=== PATIENT | female | born 1970 | race Caucasian/White ===

== ENCOUNTER 2024-05-19 11:17 | Observation (INO) | payer OTHER ==
[2024-05-19] MEDS ORDERED: CEFTRIAXONE 1000 MG/VIAL ONE (11:42)
[2024-05-19] MEDS ORDERED: METHYLPREDNISOLONE 125 MG INJ ONE ×2 (11:43→13:28)
[2024-05-19] MEDS ORDERED: IPRATROPIUM BROM 0.5MG/2.5ML ONE (11:43)
[2024-05-19] MEDS ORDERED: NA CHLORIDE 0.9% 1,000 ML ONE (11:43)
[2024-05-19] MEDS ORDERED: LEVALBUTEROL 1.25 MG/3 ML NEB ONE (11:43)
[2024-05-19] MEDS ORDERED: AZITHROMYCIN 250 MG TAB ONE (11:43)
--- NOTE | 2024-05-19 12:19 | RAD REPORT ---
EXAMINATION: ONE VIEW CHEST XR CLINICAL INDICATION: Female, 54 years old.Cough;Congestion TECHNIQUE: 1 View, AP supine, X-ray of the chest was performed. [id number]. COMPARISON: No prior exam. FINDINGS: Lungs and pleura: Clear lungs. No effusion. Heart and mediastinum: Normal heart size. Unremarkable mediastinal contours. Osseous structures: No acute abnormality. Tubes/lines: None Other: None. IMPRESSION: No acute intrathoracic abnormality.
[2024-05-19 12:40] LABS: Absolute Lymphocytes (CBC) 0.9 K/uL (0.7-4.9); Absolute Monocytes 0.1 K/uL (0.1-1.3); Basophils % 0.5 % (0-1.3); Eosinophils % 0.2 % (0-4.4); Hematocrit 41.7 % (36.0-45.0); Hemoglobin 13.8 g/dL (12.0-15.0); Lymphocytes % 14.4 % (15.3-44.8); MPV 7.2 fL (7.6-11.3); Monocytes % 1.9 % (3.3-12.3); Platelets 408 thou/uL (152-406); RBC Red Blood Cell Count 4.74 M/uL (3.86-4.86); Red Cell Distribution Width 13.8 % (12.1-15.2)
[2024-05-19 12:41] LABS: PT Prothrombin Time 11.4 SECONDS (9.4-12.5); Protime INR 1.02
[2024-05-19 12:54] LABS: SARS-CoV-2 Antigen CONTROL BLUE LINE VIS/BG OK; SARS-CoV-2 Antigen Rapid Res Negative (Negative)
[2024-05-19 12:56] LABS: ALT/SGPT 19 U/L (13-56); Albumin 4.2 g/dL (3.4-5.0); Albumin/Globulin Ratio 1.1 (1.1-1.8); Alkaline Phosphatase 90 U/L (45-117); Anion Gap 10.6 mEq/L (5.0-15.0); BUN Blood Urea Nitrogen 9 mg/dL (7-18); Bicarbonate 26 mEq/L (21-32); Bilirubin Total 0.4 mg/dL (0.2-1.0); Globulin 3.9 g/dL (2.3-3.5); Glomerular Filtration Rate 80 ml/min (=/>90); Glucose Level 92 mg/dL (74-106); Magnesium 2.1 mg/dL (1.6-2.4); NT PRO-BNP 58 pg/mL (<125); Potassium 3.6 mEq/L (3.5-5.1); Protein, Total 8.1 g/dL (6.4-8.2); Sodium Level 134 mEq/L (136-145)
[2024-05-19 12:59] LABS: AST/SGOT < 10 U/L (15-37); Bilirubin Direct < 0.2 mg/dL (0-0.2); Bilirubin Indirect, Calculated 0.2 mg/dL (0.2-0.8)
--- NOTE | 2024-05-19 13:26 | RAD REPORT ---
EXAMINATION: CT CHEST WITHOUT CONTRAST CLINICAL INDICATION: Female, 54 years old. DYSPNEA TECHNIQUE: Routine CT scan of the chest without intravenous contrast. One or more of the following do se reduction techniques were used: Automated exposure control, adjustment of the mA and/or kV according to patient size, and/or iterative reconstruction. Unless otherwise specified, incidental fi ndings do not require dedicated imaging follow-up. [id number]. COMPARISON: Same-day chest x-ray FINDINGS: LOWER NECK: Visualized thyroid gland and soft tissues are normal. LUNGS AND AIRWAYS: Airways are clear. No evidence of airspace or interstitial process. Azygous fissur e at the right lung apex, normal variant. Scattered bilateral pulmonary nodules. Most of which are calcified. A few noncalcified pulmonary nodules are noted including a 4 mm nodule in the right lower lobe on image 34, series 201. None are overtly suspicious. PLEURA: No pleural effusion. No pneumothorax. Hemidiaphragms are normally positioned. MEDIASTINUM AND LYMPH NODES: No mediastinal mass or fluid collection. Normal size mediastinal, hilar, and axillary lymph nodes. THORACIC AORTA: Normal caliber and configuration. PULMONARY ARTERIES: Normal caliber. HEART: Normal heart size. No coronary calcifications.No pericardial effusion. OSSEOUS STRUCTURES AND CHEST WALL: Intact. UPPER ABDOMEN: Cholecystectomy IMPRESSION: No acute or significant abnormalities. Small calcified and noncalcified pulmonary nodules are almost certainly benign. Unless high risk for lung cancer, no follow-up is required.
[2024-05-19] MEDS ORDERED: MAGNESIUM SULFATE 1 gm IVPB 1 GM/100 ML BAG IV ONE (13:28)
[2024-05-19] MEDS ORDERED: ENOXAPARIN 40 MG/0.4 ML SQ ONE (13:28)
[2024-05-19] MEDS ORDERED: FAMOTIDINE 20 MG/2 ML VIAL IV ONE (13:28)
--- NOTE | 2024-05-19 13:31 | ER ---
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 Coronavirus screen: shortness of breath. Ebola Screen: Patient denies travel to an Ebola-affected area in the 21 days before illness onset. Initial Sepsis Screen: Does the patient meet any 2 criteria? No. Patient's initial sepsis screen is negative. Does the patient have a suspected source of infection? No. Patient's initial sepsis screen is negative. Risk Assessment: Do you want to hurt yourself or someone else? Patient reports no desire to harm self or others. Onset of symptoms was May 2024. 11:29 Acuity: KAROL 3 aa5 11:29 Method Of Arrival: Ambulatory aa5 Triage Assessment: 11:30 General: Appears in no apparent distress. slender, Behavior is cooperative, appropriate bp for age, anxious. Pain: Denies pain. EENT: No deficits noted. Neuro: Level of Consciousness is obeys commands, Oriented to Appropriate for age. Cardiovascular: Rhythm is sinus rhythm. Respiratory: Reports shortness of breath Onset: The symptoms/episode began/occurred at an unknown time. the patient has mild shortness of breath. GI: No signs and/or symptoms were reported involving the gastrointestinal system. : No signs and/or symptoms were reported regarding the genitourinary system. Derm: No deficits noted. Musculoskeletal: No deficits noted. Historical: - Allergies: :31 No Known Allergies; aa5 - Home Meds: :31 Dupixent Pen subcutaneous [Active]; epinephrine pen [Active]; Albuterol Inhl [Active]; aa5 prednisone 40mg Oral tablet daily started 05/18/2024 [Active]; hydroxyzine HCl 25 mg Oral tablet [Active]; famotidine 20 mg Oral tablet [Active]; fluticasone furoate 27.5 mcg/actuation intranasal spray, suspension [Active]; fexofenadine 180 mg oral tablet [Active]; budesonide inhalation [Active]; gotdznnehh-smiryrdy-vadcarvhaw 160-9-4.8 mcg/actuation inhalation HFA Aerosol Inhaler [Active]; - PMHx: 11:31 Asthma; anaphylaxis (unknown substance); aa5 - Immunization history:: Adult Immunizations unknown. - Infectious Disease History:: Denies. - Social history:: Smoking status: Patient denies any tobacco usage or history of. Screenin:30 [facility] ED Fall Risk Assessment (Adult) History of falling in the last 3 months, bp including since admission No falls in past 3 months (0 pts) Confusion or Disorientation No (0 pts) Intoxicated or Sedated No (0 pts) Impaired Gait No (0 pts) Mobility Assist Device Used No (0 pt) Altered Elimination No (0 pt) Score/Fall Risk Level 0 - 2 = Low Risk. Abuse screen: Denies threats or abuse. Denies injuries from another. Nutritional screening: No deficits noted. Tuberculosis screening: No symptoms or risk factors identified. Assessment: 11:30 General: Appears in no apparent distress. slender, Behavior is cooperative, appropriate bp for age, anxious. Cardiovascular: Rhythm is sinus tachycardia. Respiratory: Airway is patent Respiratory effort is even, unlabored, Breath sounds are clear bilaterally. 14:00 Reassessment: Patient appears in no apparent distress at this time. Patient is alert, bp oriented x 3, equal unlabored respirations, skin warm/dry/pink. 15:00 Reassessment: Patient appears in no apparent distress at this time. Patient and/or jb4 family updated on plan of care and expected duration. Pain level reassessed. Patient is alert, oriented x 3, equal unlabored respirations, skin warm/dry/pink. 16:00 Reassessment: Patient appears in no apparent distress at this time. Patient and/or jb4 family updated on plan of care and expected duration. Pain level reassessed. Patient is alert, oriented x 3, equal unlabored respirations, skin warm/dry/pink. 17:00 Reassessment: Patient appears in no apparent distress at this time. Patient and/or jb4 family updated on plan of care and expected duration. Pain level reassessed. Patient is alert, oriented x 3, equal unlabored respirations, skin warm/dry/pink. 18:53 Reassessment: Patient appears in no apparent distress at this time. Patient and/or jb4 family updated on plan of care and expected duration. Pain level reassessed. Patient is alert, oriented x 3, equal unlabored respirations, skin warm/dry/pink. Vital Signs: 11:29 BP 133 / 77; Pulse 95; Resp 20 S; Temp 97.8(TE); Pulse Ox 100% on R/A; Weight 55.79 kg aa5 (M); Height 5 ft. 9 in. (R); 14:00 BP 144 / 86; Pulse 87; Resp 16; Pulse Ox 100% ; bp 16:00 BP 106 / 69; Pulse 97; Resp 16; Pulse Ox 100% on R/A; jb4 19:00 BP 104 / 71; Pulse 93; Resp 16; Pulse Ox 98% on R/A; jb4 11:29 Body Mass Index 18.16 (55.79 kg, 175.26 cm) aa5 ED Course: 11:23 Patient arrived in ED. im 11:24 Angel Bah MD is Attending Physician. robe 11:29 Arm band placed on. aa5 11:30 Patient has correct armband on for positive identification. bp 11:31 Triage completed. aa5 11:38 Kurt Christine, RN is Primary Nurse. bp 12:16 XRAY Chest (1 view) In Process Unspecified. EDMS 12:30 Initial lab(s) drawn, by sd, sent to lab. Inserted saline lock: 20 gauge in right bp antecubital area, using aseptic technique. Blood collected. Flushed with 10 mL NS. 13:17 Thorax Wo Con In Process Unspecified. EDMS 13:29 Rolly Milner MD is Hospitalizing Provider. robe 13:39 US Extremity Venous W Compression Dom In Process Unspecified. EDMS 13:50 First set of blood cultures drawn by me, Second set of blood cultures drawn by me, EKG bp done, by ED staff, reviewed by Angel Bah MD. 19:25 No provider procedures requiring assistance completed. Patient admitted, IV remains in dd2 place. Administered Medications: 12:18 CANCELLED (Patient Refused): [id number] mg IVP once bp 12:20 Drug: NS 0.9% IV 500 ml IV at bolus once Route: IV; Rate: bolus; Site: right bp antecubital; 12:20 Drug: NS 0.9% IV 1000 ml IV at 125 ml/hr continuous Route: IV; Rate: 125 ml/hr; Site: bp right antecubital; 12:20 Drug: Levalbuterol Inhalation 3.75 mg Inhalation once Route: Inhalation; bp 12:20 Drug: Ipratropium Inhalation Aerosol 0.5 mg Inhalation once Route: Inhalation; bp 12:20 Drug: Rocephin IV 1 grams IV at per protocol once; Given slow IV push per pharmacy bp instructions Route: IV; Rate: per protocol; Site: right antecubital; 12:20 Drug: AZITHromycin PO 500 mg PO once Route: PO; bp 13:15 Drug: Magnesium Sulfate IVPB 1 grams IVPB once over 1 hrs Route: IVPB; Infused Over: 1 bp hrs; Site: right antecubital; 13:30 Drug: MethylPrednisoLONE IVP 125 mg IVP once Route: IVP; Site: right antecubital; bp 13:30 Drug: Famotidine IVP 20 mg IVP once; dilute with 10 mL 0.9% NaCl; give over 2 minutes bp Route: IVP; Site: right antecubital; 13:30 Drug: Enoxaparin Sub-Q 1 mg/kg Sub-Q once Route: Sub-Q; Site: right lower abdomen; bp 14:00 Drug: NS 0.9% IV 1000 ml IV at 1000 ml once; to be given as a bolus over 60 minutes bp Route: IV; Rate: 1000 ml; Site: right antecubital; 15:00 Follow up: Response: No adverse reaction; IV Status: Completed infusion; IV Intake: jb4 1000ml Medication: 19:51 VIS not applicable for this client. dd2 Intake: 15:00 IV: 1000ml; Total: 1000ml. jb4 Outcome: 13:31 Decision to Hospitalize by Provider. robe 19:25 Admitted to Med/surg dd2 19:25 Condition: stable 19:25 Instructed on the need for admit, 19:51 Patient left the ED. dd2 Signatures: Dispatcher [employer] Angel Foster MD MD cha Calderon, Audri RN RN aa5 Ryan Omalley RN RN jb4 Kurt Christine RN RN bp Angelika Coley DIANA, RN RN dd2 Corrections: (The following items were deleted from the chart) 12:22 11:29 BP 133 / 77; Pulse 95bpm; Resp 20bpm; Spontaneous; Pulse Ox 100% RA; Temp 97.8F aa5 Temporal; aa5
--- NOTE | 2024-05-19 13:31 | EDPHYS ---
Physician Documentation [facility] Name: Tejinder Castillo Age: 54 yrs Sex: Female : 1970 Arrival Date: 05/19/2024 Time: 11:17 Bed 19 Private MD: ED Physician Angel Bah HPI: 05/19 12:49 This 54 yrs old Female presents to ER via Ambulatory with complaints of robe Asthma Exacerbation, Flu Symptoms, Shortness Of Breath. 12:49 The patient presents to the emergency department with wheezing, Current therapy: robe albuterol nebs, that began without any particular precipitating event. Onset: The symptoms/episode began/occurred 10 day(s) ago. Modifying factors: The symptoms are alleviated by nothing, the symptoms are aggravated by dust, exertion. Associated signs and symptoms: Pertinent positives: nausea. Severity of symptoms: At their worst the symptoms were moderate severe in the emergency department the symptoms have improved moderately. The patient has experienced similar episodes in the past, multiple times. Historical: - Allergies: 11:31 No Known Allergies; aa5 - Home Meds: 11:31 Dupixent Pen subcutaneous [Active]; epinephrine pen [Active]; Albuterol Inhl [Active]; aa5 prednisone 40mg Oral tablet daily started 05/18/2024 [Active]; hydroxyzine HCl 25 mg Oral tablet [Active]; famotidine 20 mg Oral tablet [Active]; fluticasone furoate 27.5 mcg/actuation intranasal spray, suspension [Active]; fexofenadine 180 mg oral tablet [Active]; budesonide inhalation [Active]; taomsmvkwg-qavqmoze-slvuzrofmk 160-9-4.8 mcg/actuation inhalation HFA Aerosol Inhaler [Active]; - PMHx: 11:31 Asthma; anaphylaxis (unknown substance); aa5 - Immunization history:: Adult Immunizations unknown. - Infectious Disease History:: Denies. - Social history:: Smoking status: Patient denies any tobacco usage or history of. ROS: 12:49 Constitutional: Negative for fever, chills, and weight loss, Eyes: Negative for injury, robe pain, redness, and discharge, ENT: Negative for injury, pain, and discharge, Neck: Negative for injury, pain, and swelling, Cardiovascular: Negative for chest pain, palpitations, and edema, Abdomen/GI: Negative for abdominal pain, nausea, vomiting, diarrhea, and constipation, Back: Negative for injury and pain, : Negative for injury, bleeding, discharge, and swelling, MS/Extremity: Negative for injury and deformity, Skin: Negative for injury, rash, and discoloration, Neuro: Negative for headache, weakness, numbness, tingling, and seizure, Psych: Negative for depression, anxiety, suicide ideation, homicidal ideation, and hallucinations, Allergy/Immunology: Negative for hives, rash, and allergies, Endocrine: Negative for neck swelling, polydipsia, polyuria, polyphagia, and marked weight changes, Hematologic/Lymphatic: Negative for swollen nodes, abnormal bleeding, and unusual bruising, 12:49 Respiratory: Positive for cough, shortness of breath, wheezing, inspiratory, expiratory, Exam: 12:49 Constitutional: This is a well developed, well nourished patient who is awake, alert, robe and in no acute distress. Head/Face: Normocephalic, atraumatic. Eyes: Pupils equal round and reactive to light, extra-ocular motions intact. Lids and lashes normal. Conjunctiva and sclera are non-icteric and not injected. Cornea within normal limits. Periorbital areas with no swelling, redness, or edema. ENT: Nares patent. No nasal discharge, no septal abnormalities noted. Tympanic membranes are normal and external auditory canals are clear. Oropharynx with no redness, swelling, or masses, exudates, or evidence of obstruction, uvula midline. Mucous membranes moist. Neck: Trachea midline, no thyromegaly or masses palpated, and no cervical lymphadenopathy. Supple, full range of motion without nuchal rigidity, or vertebral point tenderness. No Meningismus. Chest/axilla: Normal chest wall appearance and motion. Nontender with no deformity. No lesions are appreciated. Cardiovascular: Regular rate and rhythm with a normal S1 and S2. No gallops, murmurs, or rubs. Normal PMI, no JVD. No pulse deficits. Abdomen/GI: Soft, non-tender, with normal bowel sounds. No distension or tympany. No guarding or rebound. No evidence of tenderness throughout. Back: No spinal tenderness. No costovertebral tenderness. Full range of motion. Skin: Warm, dry with normal turgor. Normal color with no rashes, no lesions, and no evidence of cellulitis. MS/ Extremity: Pulses equal, no cyanosis. Neurovascular intact. Full, normal range of motion. Neuro: Awake and alert, GCS 15, oriented to person, place, time, and situation. Cranial nerves II-XII grossly intact. Motor strength 5/5 in all extremities. Sensory grossly intact. Cerebellar exam normal. Normal gait. Psych: Awake, alert, with orientation to person, place and time. Behavior, mood, and affect are within normal limits. 12:49 Respiratory: the patient does not display signs of respiratory distress, Respirations: labored breathing, that is mild, Breath sounds: bronchial sounds, that are moderate, are scattered, decreased breath sounds, that are mild, are scattered, rhonchi, that are mild, are scattered, stridor, is not appreciated, + upper airway congestion. Respiratory rate: 22 12:49 Musculoskeletal/extremity: DVT Exam: No signs of deep vein thrombosis. no pain, no swelling, no tenderness, negative Homans' sign noted on exam, no appreciated bluish discoloration, no erythema, no increased warmth, 12:53 ECG was reviewed by the Attending Physician. [facility] Vital Signs: 11:29 BP 133 / 77; Pulse 95; Resp 20 S; Temp 97.8(TE); Pulse Ox 100% on R/A; Weight 55.79 kg aa5 (M); Height 5 ft. 9 in. (R); 14:00 BP 144 / 86; Pulse 87; Resp 16; Pulse Ox 100% ; bp 16:00 BP 106 / 69; Pulse 97; Resp 16; Pulse Ox 100% on R/A; jb4 19:00 BP 104 / 71; Pulse 93; Resp 16; Pulse Ox 98% on R/A; jb4 11:29 Body Mass Index 18.16 (55.79 kg, 175.26 cm) aa5 MDM: 11:24 Patient medically screened. [facility] 12:51 Differential diagnosis: Anxiety Reaction asthma, Bronchitis CHF exacerbation, Chronic robe Obstructive Pulmonary Disease acute asthma, exercise-induced asthma, reactive airway, CHF, anaphylaxis, foreign body, Myocardial Infarction pneumonia, Pneumothorax Psychogenic. Antibiotic administration: Rocephin and Zithromax given. Immunization status: Influenza vaccine: within last 5 years. Data reviewed: vital signs, nurses notes, lab test result(s), EKG, radiologic studies. Consideration of Admission/Observation Patient was admitted/placed on observation. Escalation of care including admission/observation considered. I considered the following discharge prescriptions or medication management in the emergency department Medications were administered in the Emergency Department. See MAR. Independent interpretation of the following test(s) in the Emergency Department EKG: See my EKG interpretation above. Test considered but Not performed: Ultrasound NO 2 . Historians other than the Patient: Family Member: MOM WELL INFORMED. Care significantly affected by the following chronic conditions: ASTHMA, ANAPHY. Counseling: I had a detailed discussion with the patient and/or guardian regarding the historical points, exam findings, and any diagnostic results supporting the discharge/admit diagnosis, lab results, radiology results, the need for further work-up and treatment in the hospital. 05/19 11:27 Order name: Basic Metabolic Panel; Complete Time: 13:19 [facility] 05/19 11:27 Order name: CBC with Diff; Complete Time: 12:47 [facility] 05/19 11:27 Order name: LFT's; Complete Time: 13:19 [facility] 05/19 11:27 Order name: Magnesium; Complete Time: 13:19 [facility] 05/19 11:27 Order name: NT PRO-BNP; Complete Time: 13:19 [facility] 05/19 11:27 Order name: PT-INR; Complete Time: 12:47 [facility] 05/19 11:27 Order name: Troponin HS; Complete Time: 13:19 [facility] 05/19 11:27 Order name: Blood Culture Adult (2) [facility] 05/19 11:27 Order name: Lactate w/ 2H reflex if indic.; Complete Time: 13:19 [facility] 05/19 11:27 Order name: SARS RAPID; Complete Time: 13:19 [facility] 05/19 11:27 Order name: Flu; Complete Time: 13:19 [facility] 05/19 15:04 Order name: Ghost Lactate-NO COLLECT Timer; Complete Time: 17:20 EDMS 05/19 15:18 Order name: Basic Metabolic Panel EDMS 05/19 15:18 Order name: Basic Metabolic Panel EDMS 05/19 15:18 Order name: CBC with Automated Diff EDMS 05/19 15:18 Order name: CBC with Automated Diff EDMS 05/19 15:18 Order name: Magnesium EDMS 05/19 15:18 Order name: Magnesium EDMS 05/19 18:23 Order name: Lactate Sepsis 2 HR Follow-up EDMS 05/19 11:27 Order name: XRAY Chest (1 view); Complete Time: 12:47 [facility] 05/19 13:14 Order name: Thorax Wo Con; Complete Time: 17:20 [facility] 05/19 13:19 Order name: VQ scan (Nuclear Medicine) [facility] 05/19 13:20 Order name: US Extremity Venous W Compression Dom; Complete Time: 17:20 [facility] 05/19 17:09 Order name: NM; Complete Time: 17:20 [facility] 05/19 11:27 Order name: EKG; Complete Time: 11:28 [facility] 05/19 15:18 Order name: CONS Physician Consult [facility] 05/19 11:27 Order name: Cardiac monitoring; Complete Time: 12:23 [facility] 05/19 11:27 Order name: EKG - Nurse/Tech; Complete Time: 14:13 [facility] 05/19 11:27 Order name: IV Saline Lock; Complete Time: 12:23 [facility] 05/19 11:27 Order name: Labs collected and sent; Complete Time: 12:23 [facility] 05/19 11:27 Order name: O2 Per Protocol; Complete Time: 12:23 [facility] 05/19 11:27 Order name: O2 Sat Monitoring; Complete Time: 12:24 [facility] EC:53 Rate is 73 beats/min. Rhythm is regular. QRS [place] is Normal. HI interval is normal. QRS robe interval is normal. QT interval is normal. No Q waves. T waves are Normal. No ST changes noted. Clinical impression: NSR w/ Non-specific ST/T Changes and No evidence of ischemia. Interpreted by me. Reviewed by me. Administered Medications: 12:18 CANCELLED (Patient Refused): [id number] mg IVP once bp 12:20 Drug: NS 0.9% IV 500 ml IV at bolus once Route: IV; Rate: bolus; Site: right bp antecubital; 12:20 Drug: NS 0.9% IV 1000 ml IV at 125 ml/hr continuous Route: IV; Rate: 125 ml/hr; Site: bp right antecubital; 12:20 Drug: Levalbuterol Inhalation 3.75 mg Inhalation once Route: Inhalation; bp 12:20 Drug: Ipratropium Inhalation Aerosol 0.5 mg Inhalation once Route: Inhalation; bp 12:20 Drug: Rocephin IV 1 grams IV at per protocol once; Given slow IV push per pharmacy bp instructions Route: IV; Rate: per protocol; Site: right antecubital; 12:20 Drug: AZITHromycin PO 500 mg PO once Route: PO; bp 13:15 Drug: Magnesium Sulfate IVPB 1 grams IVPB once over 1 hrs Route: IVPB; Infused Over: 1 bp hrs; Site: right antecubital; 13:30 Drug: MethylPrednisoLONE IVP 125 mg IVP once Route: IVP; Site: right antecubital; bp 13:30 Drug: Famotidine IVP 20 mg IVP once; dilute with 10 mL 0.9% NaCl; give over 2 minutes bp Route: IVP; Site: right antecubital; 13:30 Drug: Enoxaparin Sub-Q 1 mg/kg Sub-Q once Route: Sub-Q; Site: right lower abdomen; bp 14:00 Drug: NS 0.9% IV 1000 ml IV at 1000 ml once; to be given as a bolus over 60 minutes bp Route: IV; Rate: 1000 ml; Site: right antecubital; 15:00 Follow up: Response: No adverse reaction; IV Status: Completed infusion; IV Intake: jb4 1000ml Disposition Summary: 05/19/24 13:31 Hospitalization Ordered Notes: Hospitalization Status: Inpatient Admission robe Provider: Rolly Milner cha Location: Telemetry/MedSurg (observation) robe Condition: Fair robe Problem: new robe Symptoms: have improved robe Bed/Room Type: Standard robe Room Assignment: 409(05/19/24 18:29) bc6 Diagnosis - Moderate persistent asthma with (acute) exacerbation - FAILED OUTPATIENT TREATMENT robe - Hypoxemia robe Forms: - Medication Reconciliation Form robe - SBAR form robe - Leadership Thank You Letter robe Signatures: Dispatcher [employer] EDAngel Reed MD MD cha Calderon, Audri RN RN aa5 Kurt Christine RN RN Ngozi Gasca bc6 Ryan Omalley RN jb4 Corrections: (The following items were deleted from the chart) 11:28 11:28 BASIC METABOLIC PANEL+C.LAB.BRZ ordered. EDMS EDMS 11:28 11:28 CBC+H.LAB.BRZ ordered. EDMS EDMS 11:28 11:28 HEPATIC FUNCTION+C.LAB.BRZ ordered. EDMS EDMS 11:28 11:28 MAGNESIUM+C.LAB.BRZ ordered. EDMS EDMS 11: 11:28 PROBNP+C.LAB.BRZ ordered. EDMS EDMS 11: 11:28 PROTIME (+INR)+COAG.LAB.BRZ ordered. EDMS EDMS 11: 11:28 Troponin High Sensitivity+C.LAB.BRZ ordered. EDMS EDMS 11: 11:28 BLOOD CULTURE*+BA.LAB.BRZ ordered. EDMS EDMS : 11:28 LACTATE+C.LAB.BRZ ordered. EDMS EDMS 11: 11:28 SARS-COV-2 Antigen Rapid+I.LAB.BRZ ordered. EDMS EDMS 11: 11:28 Influenza Screen (A \T\ B)+BA.LAB.BRZ ordered. EDMS EDMS 12:18 11:27 MethylPrednisoLONE IVP 125 mg IVP once ordered. [facility] bp 13:14 12:48 Chest For PE Angio+CT.RAD.BRZ ordered. EDMS EDMS 18:29 13:31 robe bc6
--- NOTE | 2024-05-19 14:15 | RAD REPORT ---
EXAMINATION: US LOWER EXTREMITY VENOUS DOPPLER BILATERAL CLINICAL INDICATION: Female, 54 years old.PAIN TECHNIQUE: Complete bilateral duplex sonography of the lower extremity veins was performed. The exami nation included compression for vein patency, color Doppler imaging and flow augmentation in response to distal compression of the distal external iliac, common femoral, femoral, popliteal, manny miles, tibial and great saphenous veins. [id number]. COMPARISON: No prior exams FINDINGS: Duplex sonography imaging demonstrates all deep examined to be fully compressible with spontaneous, p hasic and augmented flow bilaterally. IMPRESSION: No evidence of acute deep venous thrombosis seen in either lower extremity.
[2024-05-19] MEDS ORDERED: ONDANSETRON 4 MG/2 ML VIAL IV PRN (15:13)
--- NOTE | 2024-05-19 15:28 | P.HP ---
Certification for Inpatient Patient admitted to: Observation With expected LOS: <2 Midnights Practitioner: I am a practitioner with admitting privileges, knowledge of patient current condition, hospital course, and medical plan of care. Services: Services provided to patient in accordance with Admission requirements found in Title 42 Section 412.3 of the Code of Federal Regulations Patient History Date of Service: 05/19/24 Reason for admission: asthma / shortness of breath History of Present Illness: 54yo F, PMH: Factor V Leiden with LLE DVT (~5 yrs ago and not consistently taking anticoagulation), recently diagnosed with severe asthma and? Idiopathic anaphylaxis, chronic pain, GERD/Gastroparesis. Presents to the ED with 3 days of progressively worsening shortness of breath. Diagnosed with asthma and anaphylaxis 3-4 months ago, reports no prior history, and has had 35 episodes. She has been on Symbicort and as needed albuterol. She saw her allergy/manager department yesterday who gave her samples to start Breztri, and prescribed DuoNebs. Due to the timing, she was unable to fill the DuoNeb prescription yesterday, and her breathing progressively worsened to where she could not wait for the pharmacy today. She is unable to recall any particular triggers for her asthma as well as her anaphylaxis. She has been getting worked up by her handy worker, reports blood testing for allergies and immunoglobulins have been negative. She feels like her breathing has continued to get worse over the last 3-4 months despite inhalers and nebulizers. Associated with cough, headache, decreased appetite. She describes her anaphylaxis as getting nauseous, coughing, throwing up, near syncope, and seeing black spots. Each episode has had some relief after using an EpiPen. Feels like smells/odors could potentially trigger this. She also recently received the first 2 injections of Dexilant last . Over the last 24 hours 48 hours she was using her albuterol nearly every hour with only temporary relief. She was told if needing that often to present to the ER. In the ED she was noted to appear in respiratory distress, oxygen saturation 92- 92% on room air, with increased work of breathing. She reports feeling much better after receiving DuoNebs in the ER. Chest x-ray, CT chest, bilateral venous Doppler ultrasound, and lab work were all rather unremarkable with exception of an elevated lactate. Allergies No Known Allergies Allergy (Unverified 05/19/24 15:25) - Past Medical/Surgical History -: Factor V Leiden, left leg DVT (~5 years ago) -: Asthma -: Anaphylaxis (? Idiopathic ) -: Anxiety and depression -: Chronic lower back pain -: Cholecystectomy - Family History Family History: Reviewed- Non-Contributory - Social History Smoking Status: Never smoker Alcohol use: Yes CD- Drugs: No Place of Residence: Home Review of Systems 10-point ROS is otherwise unremarkable General: Malaise Respiratory: Cough, SOB with Excertion Musculoskeletal: Back Pain Physical Examination - Physical Exam General: Alert, Oriented x3 HEENT: EOMI, Sclerae nonicteric Respiratory: Clear to auscultation bilaterally, Diminished, Other (Slight tachypnea, shallow respirations) Cardiovascular: No edema, Regular rate/rhythm Gastrointestinal: Soft and benign, Non-distended, No tenderness Musculoskeletal: No contractures, No tenderness Neurological: Normal speech, Normal affect - Studies Laboratory Data (last 24 hrs) 05/19/24 05/19/24 05/19/24 12:20 12:20 12:20 WBC 6.00 Hgb 13.8 Hct 41.7 Plt Count 408 H PT 11.4 INR 1.02 Sodium 134 L Potassium 3.6 BUN 9 Creatinine 0.86 Glucose 92 Magnesium 2.1 Total Bilirubin 0.4 AST < 10 L ALT 19 Alkaline Phosphatase 90 Microbiology Data (last 24 hrs): 05/19/24 12:20 Nasopharnyx Influenza Type A Antigen Screen - Final 05/19/24 12:20 Nasopharnyx Influenza Type B Antigen Screen - Final Assessment and Plan - Advance Directives Does patient have a Living Will: No Does patient have a Durable POA for Healthcare: No Physician Review Additional Text: Problem list Shortness of breath, suspected acute asthma exacerbation History of anaphylaxis (? Idiopathic factor V Leiden) History of left lower extremity DVT (approximately 5 years ago) Anxiety Chronic pain syndrome Patient reports 3 days of progressive worsening breathing, similar to her previous/recent episodes when diagnosed with asthma exacerbation CXR, CT without any acute findings, patient had some improvement after DuoNebs Continue home inhalers, nebs, will need to confirm her home medications Pulmonology consult Currently on room air No evidence of infection/effusion History of anaphylaxis, with no particular trigger that she has been able to identify, the anaphylaxis and asthma began in the last 4-5 months States similar symptoms seem to be triggered by odors Continue home Pepcid, hydroxyzine, fexofenadine With her describing anaphylaxis, asthma exacerbations, hives, raises suspicion for mast cell activation syndrome Or persist suspicion with serum allergy testing and immunoglobulins which were all normal VQ scan ordered by ED, to be done later this afternoon Bilateral venous ultrasound negative for DVT Patient will be at risk of PE, however no tachycardia, and saturating 99% on room air, with noted improvement after DuoNebs making it less likely She has not been taking her anticoagulation as recommended/prescribed due to the the medications make her "not feel well" Lovenox for now Code: Full Dispo: Anticipate home next 24 hours Time Spent Managing Pts Care (In Minutes): 70
[2024-05-19] MEDS ORDERED: FEXOFENADINE 180 MG TAB PO PRN (15:34)
--- NOTE | 2024-05-19 17:08 | RAD REPORT ---
EXAMINATION: NUCLEAR MEDICINE VENTILATION PERFUSION SCAN XENON CLINICAL INDICATION: Female, 54 years old. DYSPNEA TECHNIQUE: Ventilation images after inhaled radiopharmaceutical obtained in multiple projections.. Pe rfusion images were obtained in multiple projections after intravenous injection of Tc-99m MAA. [id number]. RADIOPHARMACEUTICALS: 15.9 mCi of Xenon-133 and 6.7 mCi intravenous Tc-99m MAA. COMPARISON: Same-day chest radiograph and chest CT FINDINGS: VENTILATION: No focal ventilation defect. PERFUSION: Single moderate sized segmental perfusion defect in the left lung which extends to the per iphery. IMPRESSION: V/Q mismatch with intermediate probability for pulmonary embolism by PIOPED II criteria.
[2024-05-19 19:49] VITALS: BMI 18.1
[2024-05-19] MEDS: FAMOTIDINE 20 MG TAB PO SCH (19:57)
[2024-05-19] MEDS: ALBUTEROL 2.5 MG/3 ML NEB SOL NEB SCH (20:13)
[2024-05-19] MEDS: IPRATROPIUM BROM 0.5MG/2.5ML NEB SCH (20:13)
[2024-05-19] MEDS: ACETAMINOPHEN 325 MG TABLET PO PRN (23:37)
[2024-05-20 04:40] VITALS: O2SAT 94
[2024-05-20 08:54] VITALS: BP 105/73; TEMP 98
[2024-05-20] MEDS: FLUTICASONE 50MCG NASAL SPRAY NAS SCH (09:00)
[2024-05-20] MEDS: ENOXAPARIN 60 MG/0.6 ML SQ SCH (09:00)
--- NOTE | 2024-05-20 09:27 | P.DS ---
Admission Date: 05/19/24 Discharge Date: 05/20/24 Disposition: ROUTINE DISCHARGE Discharge Condition: GOOD Reason for Admission: asthma / shortness of breath Consultations: Pulmonology - Dr. Jenkins Brief History of Present Illness: 54yo F, PMH: Factor V Leiden with LLE DVT (~5 yrs ago and not consistently taking anticoagulation), recently diagnosed with severe asthma and? Idiopathic anaphylaxis, chronic pain, GERD/Gastroparesis. Presents to the ED with 3 days of progressively worsening shortness of breath. Diagnosed with asthma and anaphylaxis 3-4 months ago, reports no prior history, and has had 35 episodes. She has been on Symbicort and as needed albuterol. She saw her allergy/electron beam operator yesterday who gave her samples to start Breztri, and prescribed DuoNebs. Due to the timing, she was unable to fill the DuoNeb prescription yesterday, and her breathing progressively worsened to where she could not wait for the pharmacy today. She is unable to recall any particular triggers for her asthma as well as her anaphylaxis. She has been getting worked up by her tongue lining stitcher, reports blood testing for allergies and immunoglobulins have been negative. She feels like her breathing has continued to get worse over the last 3-4 months despite inhalers and nebulizers. Associated with cough, headache, decreased appetite. She describes her anaphylaxis as getting nauseous, coughing, throwing up, near syncope, and seeing black spots. Each episode has had some relief after using an EpiPen. Feels like smells/odors could potentially trigger this. She also recently received the first 2 injections of Dexilant last . Over the last 24 hours 48 hours she was using her albuterol nearly every hour with only temporary relief. She was told if needing that often to present to the ER. In the ED she was noted to appear in respiratory distress, oxygen saturation 92- 92% on room air, with increased work of breathing. She reports feeling much better after receiving DuoNebs in the ER. Chest x-ray, CT chest, bilateral venous Doppler ultrasound, and lab work were all rather unremarkable with exception of an elevated lactate. Hospital Course: Problem list Shortness of breath secondary to acute asthma exacerbation / PE Pulmonary Embolism; noncompliant on anticoagulation (moderate probability on VQ scan) Hx of anaphylaxis (?Idiopathic) h/o factor V Leiden Hx of left lower extremity DVT (approximately 5 years ago) Anxiety Chronic pain syndrome Physician discharge instructions: Patient presented with worsening shortness of breath felt to be secondary to asthma exacerbation and PE. with temporary relief using nebs/inhalers at home, with multiple episodes of new asthma exacerbations/anaphylaxis to unkown trigger. Chest xray, CT (non contrast) chest were without any acute findings. Bilateral venous ultrasound negative for DVT. She received Duonebs in addition to her home medications and felt significant improvement in her breathing. When describing her anaphylaxis, asthma exacerbations, and hives - raises suspicion for mast cell activation syndrome / allergic reaction. She saw her allergy/electron beam operator recently who gave her samples to start Breztri, and prescribed DuoNebs. She also recently received her Dupixent last week. She has been getting worked up by her tongue lining stitcher, reports blood testing for allergies and immunoglobulins have been negative Given her history of factor V leiden and DVT ~5-6 years ago, a VQ scan was obtained (CTA avoided due to iodine allergy). VQ noted intermediate probability for PE - single moderate sized segmental perfusion defect in the left lung which extends to the periphery. Pulmonology was consulted. Dr. Jenkins who felt this could also be in part a reaction to her dupixent. Recommended to continue home meds - breztri / duonebs recently prescribed, inhalers. Agreed with restarting Xarelto. Patient was feeling better, breathing more comfortably on room air, and was deemed stable for discharge. VQ scan done this hospitalization noted intermediate probability for pulmonary embolism. On further discussion with patient, she reports she has not been taking her anticoagulation consistently, last taken ~3 months Discussed with patient importance of taking her medications as prescribed to reduce risk factors and advised patient to resume/restart Xarelto. Starter pack was prescribed since she's been off of the medication for 3 months. Medications: Prescription for xarelto sent: Take 15 mg twice daily for 21 days. Then take 20 mg once daily Follow up with PCP for further refills continue other home medications not listed as previously prescribed. resume home inhalers Follow up: PCP 3-5 days Pulmonology 2-[address] Bullock (road roller operator hot mix located in [facility]) Please call to schedule / confirm appointments Physical Exam: GEN: Alert, oriented, NAD CV: Regular rate and rhythm, no edema Pulm: Nonlabored respirations on room air, clear bilaterally ABD: soft, nontender, nondistended Neuro: Normal speech, normal affect Vital Signs/Physical Exam: Temp Pulse Resp BP Pulse Ox 98 F 69 16 105/73 98 05/20/24 08:00 05/20/24 08:00 05/20/24 08:00 05/20/24 08:00 05/20/24 08:00 Laboratory Data at Discharge: WBC 6.00 thou/uL (4.3-10.9) 05/19/24 12:20 Hgb 13.8 g/dL (12.0-15.0) 05/19/24 12:20 Hct 41.7 % (36.0-45.0) 05/19/24 12:20 Plt Count 408 thou/uL (152-406) H 05/19/24 12:20 PT 11.4 SECONDS (9.4-12.5) 05/19/24 12:20 INR 1.02 05/19/24 12:20 Sodium 134 mEq/L (136-145) L 05/19/24 12:20 Potassium 3.6 mEq/L (3.5-5.1) 05/19/24 12:20 BUN 9 mg/dL (7-18) 05/19/24 12:20 Creatinine 0.86 mg/dL (0.55-1.02) 05/19/24 12:20 Glucose 92 mg/dL (74-106) 05/19/24 12:20 Magnesium 2.1 mg/dL (1.6-2.4) 05/19/24 12:20 Total Bilirubin 0.4 mg/dL (0.2-1.0) 05/19/24 12:20 AST < 10 U/L (15-37) L 05/19/24 12:20 ALT 19 U/L (13-56) 05/19/24 12:20 Alkaline Phosphatase 90 U/L (45-117) 05/19/24 12:20 Home Medications: Budesonide/Formoterol Fumarate [Budesonide-Formoterol 160-4.5] 2 puff IH BID 05/20/24 Budesonide/Glycopyr/Formoterol [Breztri Aerosphere Inhaler] 2 puff IH BID 05/20/24 Famotidine [Pepcid*] 2 tab PO BID 05/20/24 Fexofenadine HCl 1 tab PO DAILY 05/20/24 Fluticasone Propionate 2 spray IH BID 05/20/24 Rivaroxaban [Xarelto] 1 each PO SEECOM 30 Days #1 packet 05/20/24 hydrOXYzine HCL [Atarax*] 1 tab PO BEDTIME 05/20/24 predniSONE [Prednisone] 2 tab PO DAILY 05/20/24 New Medications: Rivaroxaban [Xarelto] 1 each PO SEECOM 30 Days #1 packet Physician Discharge Instructions: Physician discharge instructions: Patient presented with worsening shortness of breath felt to be secondary to asthma exacerbation and PE. with temporary relief using nebs/inhalers at home, with multiple episodes of new asthma exacerbations/anaphylaxis to unkown trigger. Chest xray, CT (non contrast) chest were without any acute findings. Bilateral venous ultrasound negative for DVT. She received Duonebs in addition to her home medications and felt significant improvement in her breathing. When describing her anaphylaxis, asthma exacerbations, and hives - raises suspicion for mast cell activation syndrome / allergic reaction. She saw her allergy/electron beam operator recently who gave her samples to start Breztri, and prescribed DuoNebs. She also recently received her Dupixent last week. She has been getting worked up by her tongue lining stitcher, reports blood testing for allergies and immunoglobulins have been negative Given her history of factor V leiden and DVT ~5-6 years ago, a VQ scan was obtained (CTA avoided due to iodine allergy). VQ noted intermediate probability for PE - single moderate sized segmental perfusion defect in the left lung which extends to the periphery. Pulmonology was consulted. Dr. Jenkins who felt this could also be in part a reaction to her dupixent. Recommended to continue home meds - breztri / duonebs recently prescribed, inhalers. Agreed with restarting Xarelto. Patient was feeling better, breathing more comfortably on room air, and was deemed stable for discharge. VQ scan done this hospitalization noted intermediate probability for pulmonary embolism. On further discussion with patient, she reports she has not been taking her anticoagulation consistently, last taken ~3 months Discussed with patient importance of taking her medications as prescribed to reduce risk factors and advised patient to resume/restart Xarelto. Starter pack was prescribed since she's been off of the medication for 3 months. Medications: Prescription for xarelto sent: Take 15 mg twice daily for 21 days. Then take 20 mg once daily Follow up with PCP for further refills continue other home medications not listed as previously prescribed. resume home inhalers Follow up: PCP 3-5 days Pulmonology 2-[address] Bullock (road roller operator hot mix located in [facility]) Please call to schedule / confirm appointments Followup: Kike Jenkins MD [ACTIVE - CAN ADMIT] - 1-2 Weeks Kala Bullock MD [ACTIVE - CAN ADMIT] - Izabela Velazquez FNP [Primary Care Provider] - 1-2 Weeks Time spent managing pt's care (in minutes): 45
--- NOTE | 2024-05-20 12:06 | P.CNS ---
Date of Consult: 05/20/24 Reason for Consult: Shortness of breath Chief Complaint: asthma / shortness of breath History of Present Illness: Is 54 years of age has been having problem for the past 4 months apparently she thought she had an allergic type of symptoms went to see asthma specialist in [place] currently a pulmonary function test was performed apparently revealed an abnormality patient was then treated for asthma started on Dupixent and having problems for the last week increasing shortness of breath was prescribed Symbicort no relief recently she got worse in the past week was prescribed steroids Doug appeared in the emergency room prior history of obstructive airways disease Allergies No Known Allergies Allergy (Unverified 05/19/24 15:25) Home Medications: Budesonide/Formoterol Fumarate [Budesonide-Formoterol 160-4.5] 2 puff IH BID 05/20/24 Budesonide/Glycopyr/Formoterol [Breztri Aerosphere Inhaler] 2 puff IH BID 05/20/24 Famotidine [Pepcid*] 2 tab PO BID 05/20/24 Fexofenadine HCl 1 tab PO DAILY 05/20/24 Fluticasone Propionate 2 spray IH BID 05/20/24 Rivaroxaban [Xarelto] 1 each PO SEECOM 30 Days #1 packet 05/20/24 hydrOXYzine HCL [Atarax*] 1 tab PO BEDTIME 05/20/24 predniSONE [Prednisone] 2 tab PO DAILY 05/20/24 - Past Medical/Surgical History -: Factor V Leiden, left leg DVT (~5 years ago) -: Asthma -: Anaphylaxis (? Idiopathic ) -: Anxiety and depression -: Chronic lower back pain -: Cholecystectomy - Social History Alcohol use: Yes CD- Drugs: No Place of Residence: Home Review of Systems 10-point ROS is otherwise unremarkable Physical Examination Temp Pulse Resp BP Pulse Ox 98 F 69 16 105/73 98 05/20/24 08:00 05/20/24 08:00 05/20/24 08:00 05/20/24 08:00 05/20/24 08:00 General: Alert, Oriented x3 HEENT: Atraumatic Neck: Supple Respiratory: Clear to auscultation bilaterally Cardiovascular: No edema, Regular rate/rhythm, Normal S1 S2 Gastrointestinal: Normal bowel sounds, Soft and benign Laboratory Data (last 24 hrs) 1005/19/24 05/19/24 12:20 12:20 12:20 WBC 6.00 Hgb 13.8 Hct 41.7 Plt Count 408 H PT 11.4 INR 1.02 Sodium 134 L Potassium 3.6 BUN 9 Creatinine 0.86 Glucose 92 Magnesium 2.1 Total Bilirubin 0.4 AST < 10 L ALT 19 Alkaline Phosphatase 90 - Problems (1) Shortness of breath Status: Acute Plan: 54 years of age admitted with the shortness of breath has been having problem fo r the past 4 to 5 months prior to that patient was very active with a history of allergies was seen by asthma behavioral health specialist in [place] treated with Symbicort started on Dupixent currently based on abnormal lung function had any pulmonary problems before no prior history of obstructive airways disease having reaction to the Dupixent I suggest stopping it continue with Breztri for now prednisone s ick data chest x-ray overall unremarkable signs oxygenation all satisfactory (2) Abnormal liver scan Status: Acute Plan: Patient has an abnormal VQ scan intermediate probability has a history of factor V Leiden line history in addition to history of DVT continue with the continuing her anticoagulation therapy to be discharged on Xarelto
--- NOTE | 2024-05-20 14:08 | EKG ---
Test Date: 2024-05-19 Test Time: 12:50:54 Mud Jack Nozzleman: RAJEEV MEASUREMENT RESULTS: Intervals: Rate: 73 VT: 178 QRSD: 94 QT: 408 QTc: 449 [place]: P: 63 VT: 178 QRS: 60 T: 64 INTERPRETIVE STATEMENTS: Normal sinus rhythm Normal ECG No previous ECG available for comparison Electronically Signed On 05-20-24 14:07:07 CDT by Eugene Young
== END 2024-05-20 11:52 | disposition home or self-care (01) ==
LOC: ER 11:17 → ERHOLD 15:13 → 4TH 19:11
PROVIDERS: ADMIT Hospitalist; ATTEND Hospitalist
DX: J44.1 Chronic obstructive pulmonary disease with (acute) exacerbation (principal); I26.99 Other pulmonary embolism without acute cor pulmonale; R91.8 Other nonspecific abnormal finding of lung field; R09.02 Hypoxemia; R06.02 Shortness of breath; F41.9 Anxiety disorder, unspecified; R11.0 Nausea; G89.4 Chronic pain syndrome; Z86.718 Personal history of other venous thrombosis and embolism; Z79.01 Long term (current) use of anticoagulants; Z91.148 Patient's other noncompliance with medication regimen for other reason; Z11.52 Encounter for screening for COVID-19; Z86.2 Personal history of diseases of the blood and blood-forming organs and certain disorders involving the immune mechanism
CPT/HCPCS: 93005; 87040 ×2; 85025; 80048; 36415; 83735; 85610; 80076; 83605 ×2; 84484; 83880; 87804 ×2; 71250; 71045; 93970; 94640; 94760 ×2; 78582; 87811; J3475; J7614; J7613; J7644 ×2; J1650; J2919 ×2; J7030; J0696; A9500; G0378

== ENCOUNTER 2024-06-06 19:46 | Emergency (ER) | payer OTHER ==
[2024-06-06 20:30] LABS: Absolute Basophils 0.1 K/uL (0-0.5); Absolute Eosinophils 0.2 K/uL (0-0.5); Absolute Lymphocytes (CBC) 3.1 K/uL (0.7-4.9); Absolute Monocytes 0.9 K/uL (0.1-1.3); Absolute Neutrophil 5.5 K/uL (1.8-8.0); Basophils % 1.1 % (0-1.3); Eosinophils % 2.2 % (0-4.4); Hematocrit 42.6 % (36.0-45.0); Hemoglobin 14.1 g/dL (12.0-15.0); Lymphocytes % 31.4 % (15.3-44.8); MCH 29.1 pg (27.0-35.0); MCHC 33.1 g/dL (32.0-36.0); MCV 87.9 fL (80-100); MPV 6.2 fL (7.6-11.3); Monocytes % 8.8 % (3.3-12.3); Neutrophils % 56.5 % (41.7-73.7); Nucleated Red Blood Cells % 0.1 % (0-0); Platelets 454 thou/uL (152-406); RBC Red Blood Cell Count 4.85 M/uL (3.86-4.86); Red Cell Distribution Width 14.3 % (12.1-15.2)
[2024-06-06 20:54] LABS: Anion Gap 5.7 mEq/L (5.0-15.0); Potassium 3.7 mEq/L (3.5-5.1)
--- NOTE | 2024-06-06 21:25 | RAD REPORT ---
Procedure: Chest Single View HISTORY: Chest pain COMPARISON: May 19, 2024 FINDINGS: The lungs appear clear of acute infiltrate. Calcified lung granulomas. No significant pleural effusion noted. The heart is normal size. IMPRESSION: No acute abnormality is displayed.
--- NOTE | 2024-06-06 21:44 | ER ---
Nurse's Notes [facility] Name: Tejinder Castillo Age: 54 yrs Sex: Female : 1970 Arrival Date: 06/06/2024 Time: 19:46 Bed 18 Private MD: Diagnosis: Chest pain, unspecified Presentation: 06/06 20:09 Chief complaint: Patient states: Chest pain onset 1600. Pt states that the pain is to cm10 the left side of her chest. Pt also reports shortness of breath. PT diagnosed with PE on 05/19 and has not taken her blood thinner in 24hrs due to having an allergic reaction. Coronavirus screen: Client denies travel out of the [place] in the last 14 days. Ebola Screen: Patient denies travel to an Ebola-affected area in the 21 days before illness onset. No symptoms or risks identified at this time. Initial Sepsis Screen: Does the patient meet any 2 criteria? HR > 90 bpm. Does the patient have a suspected source of infection? No. Patient's initial sepsis screen is negative. Risk Assessment: Do you want to hurt yourself or someone else? Patient reports no desire to harm self or others. Onset of symptoms was June 06, 2024. 20:09 Method Of Arrival: Ambulatory cm10 20:09 Acuity: KAROL 2 cm10 Triage Assessment: 20:13 General: Appears in no apparent distress. uncomfortable, Behavior is calm, cooperative. cm10 Neuro: No deficits noted. Level of Consciousness is awake, alert, obeys commands, Oriented to person, place, time, situation, Appropriate for age. Respiratory: No deficits noted. Airway is patent Respiratory effort is even, unlabored, Respiratory pattern is regular, symmetrical. Historical: - Allergies: 20:11 Eliquis; cm10 20:11 Lovenox; cm10 20:11 Warfarin Sodium; cm10 20:11 Xarelto; cm10 20:11 fondaparinux; cm10 - PMHx: 20:11 anaphylaxis (unknown substance); Asthma; Pulmonary Embolism; cm10 - PSHx: 20:11 Cholecystectomy; cm10 - Immunization history:: Adult Immunizations up to date. - Infectious Disease History:: Denies. - Social history:: Smoking status: Patient denies any tobacco usage or history of. Screenin:12 [facility] ED Fall Risk Assessment (Adult) History of falling in the last 3 months, jb4 including since admission No falls in past 3 months (0 pts) Confusion or Disorientation No (0 pts) Intoxicated or Sedated No (0 pts) Impaired Gait No (0 pts) Mobility Assist Device Used No (0 pt) Altered Elimination No (0 pt) Score/Fall Risk Level 0 - 2 = Low Risk Oriented to surroundings, Maintained a safe environment. Abuse screen: Denies threats or abuse. Nutritional screening: No deficits noted. Tuberculosis screening: No symptoms or risk factors identified. Assessment: 21:21 General: Appears in no apparent distress. comfortable, Behavior is calm, cooperative, jb4 appropriate for age. Pain: Complains of pain in chest Pain does not radiate. Pain currently is 1 out of 10 on a pain scale. Pain began gradually. Neuro: Level of Consciousness is awake, alert, obeys commands, Oriented to person, place, time, situation. Cardiovascular: Patient's skin is warm and dry. Respiratory: Airway is patent Respiratory effort is even, unlabored, Respiratory pattern is regular, symmetrical. GI: No signs and/or symptoms were reported involving the gastrointestinal system. : No signs and/or symptoms were reported regarding the genitourinary system. EENT: No signs and/or symptoms were reported regarding the EENT system. Derm: Skin is intact, Skin is pink, warm \T\ dry. Musculoskeletal: Circulation, motion, and sensation intact. Range of motion: intact in all extremities. 22:12 Reassessment: Patient appears in no apparent distress at this time. Patient and/or jb4 family updated on plan of care and expected duration. Pain level reassessed. Patient is alert, oriented x 3, equal unlabored respirations, skin warm/dry/pink. Vital Signs: 20:09 BP 115 / 80; Pulse 99; Resp 18; Temp 97.2(O); Pulse Ox 98% on R/A; Weight 55.79 kg; cm10 Height 5 ft. 9 in. ; Pain 5/10; 21:21 BP 118 / 90; Pulse 83; Resp 16; Pulse Ox 98% on R/A; jb4 20:09 Body Mass Index 18.16 (55.79 kg, 175.26 cm) cm10 20:09 Pain Scale: Adult cm10 ED Course: 19:47 Patient arrived in ED. ra3 20:11 Triage completed. cm10 20:13 Arm band placed on right wrist. Patient placed in waiting room. EKG completed in cm10 triage. Results shown to MD. 20:13 EKG done, by ED staff, reviewed by Kenneth Duval MD. cm10 20:21 Basic Metabolic Panel Sent. cm10 20:21 CBC with Diff Sent. cm10 20:21 Troponin HS Sent. cm10 20:21 Initial lab(s) drawn, by me, sent to lab. Inserted saline lock: 20 gauge in right cm10 antecubital area, using aseptic technique. Blood collected. Flushed with 10 mL NS. 20:23 Kenneth Duval MD is Attending Physician. ec2 21:12 XRAY Chest (1 view) In Process Unspecified. EDMS 22:12 Patient has correct armband on for positive identification. Bed in low position. Call jb4 light in reach. Side rails up X 1. Provided Education on: discharge instructions.. Client placed on continuous cardiac and pulse oximetry monitoring. NIBP monitoring applied. meat puller on. 22:12 No provider procedures requiring assistance completed. IV discontinued, intact, jb4 bleeding controlled, No redness/swelling at site. Pressure dressing applied. Patient maintains SpO2 saturation greater than 95% on room air. Administered Medications: 21:59 Drug: predniSONE PO 20 mg PO once Route: PO; jb4 22:13 Follow up: Response: No adverse reaction; Medication administered at discharge. jb4 Medication: 22:12 VIS not applicable for this client. jb4 Outcome: 21:43 Discharge ordered by MD. ec2 22:12 Discharged to home ambulatory, jb4 22:12 Condition: stable 22:12 Discharge instructions given to patient, Instructed on discharge instructions, follow up and referral plans. medication usage, Demonstrated understanding of instructions, follow-up care, medications, Prescriptions given X 1, 22:14 Patient left the ED. jb4 Signatures: Dispatcher [employer] Ryan Hairston RN RN jb4 Matilde Enriquez RN RN [facility] Kenneth Duval MD MD 2 Chely Shirley ra3 Corrections: (The following items were deleted from the chart) 20:13 20:11 PMHx: Pulmonary emphysema; cm10 cm10
--- NOTE | 2024-06-06 21:44 | EDPHYS ---
Physician Documentation [facility] Name: Tejinder Castillo Age: 54 yrs Sex: Female : 1970 Arrival Date: 06/06/2024 Time: 19:46 Bed 18 Private MD: ED Physician Kenneth Duval HPI: 06/06 20:50 This 54 yrs old Female presents to ER via Ambulatory with complaints of Chest ec2 Pain, Shortness Of Breath. 20:50 Patient arrives today for evaluation of chest pain. Patient reports that she has been ec2 experiencing chest pain ongoing for 1 day. Patient reports she has no specific alleviating or exacerbating factors. Reports history of PE and is on fondaparinux. Patient reports that she has "anaphylaxis" reports that she feels lightheaded when she takes medication.. Historical: - Allergies: 20:11 Eliquis; cm10 20:11 Lovenox; cm10 20:11 Warfarin Sodium; cm10 20:11 Xarelto; cm10 20:11 fondaparinux; cm10 - PMHx: 20:11 anaphylaxis (unknown substance); Asthma; Pulmonary Embolism; cm10 - PSHx: 20:11 Cholecystectomy; cm10 - Immunization history:: Adult Immunizations up to date. - Infectious Disease History:: Denies. - Social history:: Smoking status: Patient denies any tobacco usage or history of. ROS: 20:50 Constitutional: as per hpi ec2 Exam: 20:50 Constitutional: GEN: NAD Head: atraumatic Eyes: EOMI Ears: External ears are ec2 normal. CV: regular rate LUNGS: no respiratory distress ABD: non-distended SKIN: no evidence of rashes MSK: no evidence of trauma Vital Signs: 20:09 BP 115 / 80; Pulse 99; Resp 18; Temp 97.2(O); Pulse Ox 98% on R/A; Weight 55.79 kg; cm10 Height 5 ft. 9 in. ; Pain 5/10; 21:21 BP 118 / 90; Pulse 83; Resp 16; Pulse Ox 98% on R/A; jb4 20:09 Body Mass Index 18.16 (55.79 kg, 175.26 cm) cm10 20:09 Pain Scale: Adult cm10 MDM: 20:24 ED course: EKG independently reviewed and interpreted by me, shows normal sinus rhythm, ec2 rate of 95, no acute ST segment elevations, intervals are nonactionable.. 20:29 Medical Screening Exam initiated ec2 20:50 Data reviewed: vital signs. ED course: Patient arrives today for evaluation of chest ec2 pain. Examination remarkable for well-appearing nontoxic dividual is otherwise in no acute distress with a reassuring examination. Will obtain lab work, EKG, chest x-ray. Differential includes ACS, patient's known PE, dissection. . 21:08 ED course: Metabolic profile reassuring. CBC reassuring. Troponin is within normal ec2 ranges. Chest x-ray independently reviewed and interpreted by me, shows hyperinflated lungs, no acute cardiopulmonary disease noted. . 21:35 ED course: Workup was grossly unremarkable, instructed her she needs to take her ec2 anticoagulant for her diagnosed PE. Patient otherwise hemodynamically stable with no hypoxia evident. Patient asked for prescription for prednisone which I will prescribe. Will have her follow-up with hematology. Return precautions given.. 06/06 20:14 Order name: Basic Metabolic Panel; Complete Time: 21:07 cm10 06/06 20:14 Order name: CBC with Diff; Complete Time: 21:07 cm10 06/06 20:14 Order name: Troponin HS; Complete Time: 21:07 cm10 06/06 20:14 Order name: XRAY Chest (1 view); Complete Time: 21:34 cm10 06/06 20:14 Order name: Cardiac monitoring; Complete Time: 20:52 cm10 06/06 20:14 Order name: EKG - Nurse/Tech; Complete Time: 20:14 cm10 06/06 20:14 Order name: IV Saline Lock; Complete Time: 20:20 cm10 06/06 20:14 Order name: Labs collected and sent; Complete Time: 20:21 cm10 06/06 20:14 Order name: O2 Per Protocol; Complete Time: 20:52 cm10 06/06 20:14 Order name: O2 Sat Monitoring; Complete Time: 20:52 cm10 Administered Medications: 21:59 Drug: predniSONE PO 20 mg PO once Route: PO; jb4 22:13 Follow up: Response: No adverse reaction; Medication administered at discharge. jb4 Disposition Summary: 06/06/24 21:43 Discharge Ordered Notes: Location: Home ec2 Condition: Stable ec2 Diagnosis - Chest pain, unspecified ec2 Followup: ec2 - With: Private Physician - When: - Reason: Re-evaluation by your physician Discharge Instructions: - Discharge Summary Sheet ec2 - Nonspecific Chest Pain, Adult, [id number] ec2 Forms: - Medication Reconciliation Form ec2 - Antibiotic Education ec2 - Prescription Opioid Use ec2 - Patient Portal Instructions ec2 - Leadership Thank You Letter ec2 Prescriptions: - Prednisone 20 mg Oral Tablet - take 2 tablets ORAL route once daily for 5 days; 10 tablet; Refills: 0, Product ec2 Selection Permitted Signatures: Dispatcher [employer] EDRyan Hirsch, RN RN jb4 Matilde Enriquez RN RN cm10 Kenneth Duval MD MD ec2 Corrections: (The following items were deleted from the chart) 20:13 20:11 PMHx: Pulmonary emphysema; cm10 cm10 20:14 20:14 BASIC METABOLIC PANEL+C.LAB.BRZ ordered. EDMS EDMS 20:14 20:14 CBC+H.LAB.BRZ ordered. EDMS EDMS 20:14 20:14 Troponin High Sensitivity+C.LAB.BRZ ordered. EDMS EDMS 20:14 20:14 Chest Single View+RAD.RAD.BRZ ordered. EDMS EDMS
[2024-06-06] MEDS ORDERED: predniSONE 20 MG TAB ONE (21:53)
[2024-06-06 22:33] VITALS: TEMP 97.2; O2SAT 98
[2024-06-06 22:38] VITALS: BP 118/90
--- NOTE | 2024-06-08 14:54 | EKG ---
Test Date: 2024-06-06 Test Time: 20:07:26 Field Service Consultant: SHIRAZ MEASUREMENT RESULTS: Intervals: Rate: 95 MT: 166 QRSD: 76 QT: 340 QTc: 427 [place]: P: MT: 166 QRS: 124 T: 117 INTERPRETIVE STATEMENTS: Normal sinus rhythm Left posterior fascicular block Nonspecific ST abnormality Abnormal ECG Compared to ECG 05/19/2024 12:50:54 Left posterior fascicular block now present ST (T wave) deviation now present Electronically Signed On 06-08-24 14:47:38 CDT by Kodak Jones
== END 2024-06-06 22:14 | disposition home or self-care (01) ==
LOC: ER 19:46
DX: R07.9 Chest pain, unspecified (principal); R06.02 Shortness of breath; Z86.711 Personal history of pulmonary embolism
CPT/HCPCS: 93005; 85025; 80048; 36415; 84484; 71045; J7512; 99285